=== PATIENT | female | born 1930 | race Caucasian/White ===

== ENCOUNTER 2016-12-15 13:45 | Inpatient (IN) | payer MEDICARE ==
[~2016-12-15] VITALS: Ht 165.1 cm; Wt 70.4 kg
[~2016-12-15 13:45] MED LIST: ATELVIA PO; BISACODYL10 M1 PO; CEPHALEXIN500 MG PO; CIPROFLOXACN500 MG PO; D32000 UNIT PO; DOXEPIN HCL25 MG PO; HYDROCODONE/ACE1 TAB PO; INDERAL 20MG TA20 MG PO; IRON325 MG PO; LIQUITEARS OU; LISINOPRIL20 MG PO; MILK OF MAG2 PO; MIRALAX3350 NF PO; MOBIC7.5 M1 PO; MULTIVITAMI1 PO; NORCO1 TA1 PO; PERCOCET 5/325M1 TAB PO; PERCOCET1 TA4 PO; PRILOSEC20 MG PO; REMERON15 MG PO; SINEQUAN10 MG PO; SONATA10 M1 PO; TYLENOL325 MG PO; XANAX0.5 MG PO; ZOFRAN ODT4 MG PO; ZOFRAN4 MG/TAB PO; ZOLOFT100 MG PO; ZOLOFT50 MG PO
--- NOTE | 2016-12-15 14:04 | NUR ---
PT TO ROOM PER W/C
[2016-12-15] MEDS ORDERED: B COMPLE2 PO (14:24)
[2016-12-15] MEDS ORDERED: PROLIA60 MG/ML SC (14:25)
[2016-12-15] MEDS ORDERED: MELATONIN3 M1 PO (14:26)
[2016-12-15] MEDS ORDERED: LASIX 40 MG TAB40 MG PO (14:27)
[2016-12-15] MEDS ORDERED: OFLOXACIN0.3 % OU (14:27)
[2016-12-15] MEDS ORDERED: NEURONTIN300 MG PO (14:28)
[2016-12-15] MEDS ORDERED: BETAMETH DIP0.05 % EX (14:31)
[2016-12-15] MEDS ORDERED: LEXAPRO20 MG PO (14:33)
[2016-12-15] MEDS ORDERED: LORTAB 10-325 M1 TAB PO (14:35)
[2016-12-15 14:41] LABS: HEMATOCRIT 34.8 % (37.0-47.0); HEMOGLOBIN 10.8 g/dl (12.0-16.0); IMMATURE GRANULOCYTES 0.4 % (0.0-1.0); MEAN CELL VOLUME 86.8 fL CALC (80.0-100.0); MEAN CORPUSCULAR HGB 26.9 pG CALC (26.0-32.0); NEUT# 4.3 thou/uL (2.00-7.15); RED BLOOD COUNT 4.01 mill/uL (4.20-5.60); RED CELL DISTRI WIDTH 17.1 % (11.5-15.5)
[2016-12-15 15:02] LABS: ALBUMIN 4.8 g/dL (3.2-5.0); ALKALINE PHOSPHATASE 77 u/l (38-126); ANION GAP 18 (6-22 (CALC)); BILIRUBIN, TOTAL 1.4 mg/dL (0.0-1.4); BUN 14 mg/dL (8-23); BUN/CREATININE RATIO 20 (12-20 (CALC)); CALCIUM 10.1 mg/dL (8.4-10.2); CARBON DIOXIDE 28 mmol/l (22-30); CHLORIDE 100 mmol/l (95-108); CREATININE 0.7 mg/dL (0.5-1.0); ETHYL ALCOHOL 0 mg/dl (0-30); GFR > 60 ML/MIN (>=60 (CALC)); GFR FOR AFR.AMER. > 60 ML/MIN (>=60 (CALC)); GLUCOSE 122 mg/dL (82-115); LIPASE 33 u/l (23-300); POTASSIUM 3.9 mmol/l (3.5-5.1); SGOT/AST 102 u/l (9-36); SGPT/ALT 42 u/l (11-66); SODIUM 142 mmol/l (137-146); TOTAL PROTEIN 7.4 g/dL (6.3-8.2)
--- NOTE | 2016-12-15 15:05 | NUR ---
PT AMBULATED W/USE OF WALKER TO BR AND RETURNED W/SBA. URINE SPECIMEN OBTAINED. GAIT STEADY.
[2016-12-15 15:10] LABS: MYOGLOBIN 395 ng/mL (0 - 62)
[2016-12-15 15:17] LABS: URINE BILIRUBIN - DIPSTICK NEGATIVE (NEGATIVE); URINE BLOOD DIPSTICK LARGE (NEGATIVE); URINE CLARITY CLEAR; URINE COLOR YELLOW; URINE GLUCOSE - DIPSTICK NEGATIVE (NEGATIVE); URINE KETONE 15 mg/dL (NEGATIVE); URINE LEUK ESTERASE NEGATIVE (NEGATIVE); URINE NITRITE - DIPSTICK NEGATIVE (Negative); URINE PH 6.5 (4.5-8.0); URINE PROTEIN - DIPSTICK 100 mg/dL (NEG-TRACE); URINE SPECIFIC GRAVITY 1.025; URINE UROBILINOGEN - DIPSTICK 0.2 E.U./dL (0.2)
[2016-12-15 15:20] LABS: COCAINE NEGATIVE (NEGATIVE); METHADONE NEGATIVE (NEGATIVE); TETRAHYDROCANNABIONOL NEGATIVE (NEGATIVE)
[2016-12-15 15:21] LABS: BARBITURATES NEGATIVE (NEGATIVE); OXCYCODONE NEGATIVE (NEGATIVE); TRICYLIC ANTIDEPRESSANTS NEGATIVE (NEGATIVE)
[2016-12-15 15:30] LABS: URINE SQUAMOUS EPITHELIAL CELL FEW EPI/hpf (0-FEW); URINE WBC 0-2 WBC/hpf (0-5)
--- NOTE | 2016-12-15 16:00 | NUR ---
PT C/O NAUSEA AND CHRONIC PAIN TO LOWER BACK. MD ADVISED.
--- NOTE | 2016-12-15 16:25 | NUR ---
SBAR PRINTED TO FLOOR
--- NOTE | 2016-12-15 16:27 | NUR ---
PT MEDICATED PO FOR NAUSEA THEN PAIN. TOLERATED WELL. ADVISED OF PENDING ADMIT. PT VOICED UNDERSTANDING.
--- NOTE | 2016-12-15 17:18 | NUR ---
ATTEMTED TO CALL REPORT NURSE UNAVAILABLE AT THIS TIME.
--- NOTE | 2016-12-15 17:33 | NUR ---
ATTEMPTED TO CALL REPORT TO THE FLOOR AND WAS TOLD NURSE WOULD HAVE TO CALL BACK LATER
--- NOTE | 2016-12-15 18:06 | NUR ---
REPORT CALLED TO ROULA DUKES, ON MEDSURG. PT TO [facility]SURG VIA STRETCHER, IV SITE HEALTHY. NO APPARENT DISTRESS.
--- NOTE | 2016-12-15 18:06 | NUR ---
REPORT CALLED TO ROULA UDKES
--- NOTE | 2016-12-15 18:30 | NUR ---
PT TO [employer] VIA STRETCHER. IV SITE HEALTHY. NO APPARENT DISTRESS.
--- NOTE | 2016-12-15 18:35 | NUR ---
FROM ER VIA STRETCHER ACCOMPANIED BY ELIZA CELESTE AND MULTIPLE FAMILY MEMBERS. AMBULATED TO BED WITH STAND BY ASSIST. RESPS EVEN AND UNLABORED ON ROOM AIR. DENIES PAIN OR DISCOMFORT. ORIENTED TO ROOM AND CALL SYSTEM. SAFETY PRECAUTIONS REINFORCED. BED IN LOWEST POSITION WITH WHEELS LOCKED. CALL LIGHT WITHIN REACH. ENCOURAGED PT TO CALL FOR ANY NEEDS.
[2016-12-15 18:40] VITALS: BP 156/76
--- NOTE | 2016-12-15 19:00 | NUR ---
BEDSIDE REPORT RECEIVED FROM ROULA DUKES. PT RESTING IN BED IN SEMI FOWLERS POSITION. C/O LOWER BACK PAIN CURRENTLY. RESPIRATIONS EVEN AND UNLABORED ON ROOM AIR. INITIAL ASSESSMENT COMPLETED AT THIS TIME. ORIENTED TO ROOM AND CALL LIGHT SYSTEM. PLAN OF CARE DISCUSSED. PT ENCOURAGED TO VERBALIZE CONCERNS. STATES UNDERSTANDING. SAFETY MEASURES IN PLACE. CALL LIGHT WITHIN REACH.
--- NOTE | 2016-12-16 | NUR ---
PT ASLEEP AT THIS TIME. NO SIGNS OF DISTRESS NOTED. RESPIRATIONS EVEN AND UNLABORED. IV FLUIDS INFUSING WITHOUT DIFFICULTY; IV SITE APPEARS HEALTHY. SAFETY MEASURES REMAIN IN PLACE. CALL LIGHT WITHIN REACH.
[2016-12-16 03:43] VITALS: BP 139/69
--- NOTE | 2016-12-16 04:10 | NUR ---
PT ASLEEP AT THIS TIME. PUTS CALL LIGHT ON FOR ASSISTANCE TO BSC PRN. NO SIGNS OF DISTRESS NOTED. RESPIRATIONS EVEN AND UNLABORED. NO CHANGES IN ASSESSMENT NOTED. CALL LIGHT WITHIN REACH.
[2016-12-16 06:24] LABS: HEMATOCRIT 36.2 % (37.0-47.0); HEMOGLOBIN 11.1 g/dl (12.0-16.0); IMMATURE GRANULOCYTES 0.3 % (0.0-1.0); MEAN CELL VOLUME 87.9 fL CALC (80.0-100.0); MEAN CORPUSCULAR HGB 26.9 pG CALC (26.0-32.0); MEAN CORPUSCULAR HGB CONC 30.7 g/L CALC (32.0-36.0); NEUT# 2.93 thou/uL (2.00-7.15); RED BLOOD COUNT 4.12 mill/uL (4.20-5.60); RED CELL DISTRI WIDTH 17.2 % (11.5-15.5)
--- NOTE | 2016-12-16 06:33 | NUR ---
PT ALERT AND ORIENTED X 3 THIS AM. VERBALIZES CONCERNS ABOUT BEING A BURDEN TO HER FAMILY AND EXPERIENCING COGNITIVE DECLINE. ASKING QUESTIONS SUCH , "DO PEOPLE BOUNCE BACK FROM THIS?" TLC GIVEN.
[2016-12-16 06:48] LABS: ANION GAP 15 (6-22 (CALC)); BUN 16 mg/dL (8-23); BUN/CREATININE RATIO 22 (12-20 (CALC)); CALCIUM 9.4 mg/dL (8.4-10.2); CARBON DIOXIDE 28 mmol/l (22-30); CHLORIDE 102 mmol/l (95-108); CREATININE 0.8 mg/dL (0.5-1.0); GFR > 60 ML/MIN (>=60 (CALC)); GFR FOR AFR.AMER. > 60 ML/MIN (>=60 (CALC)); GLUCOSE 81 mg/dL (82-115); POTASSIUM 3.5 mmol/l (3.5-5.1); SODIUM 142 mmol/l (137-146)
[2016-12-16 07:24] VITALS: BP 138/60
--- NOTE | 2016-12-16 07:24 | NUR ---
REPORT RECEIVED FROM CAREN DE. PT SUPINE IN BED. DENIES PAIN. LEFT ARM SWOLLEN. IVS LAC REMOVED. ARM ELEVATED ON PILLOW. REPROTING OF CONCERNS ENCOURAGED. FALL PRECAUTIONS REINFORCED. CALL LIGHT REVIEWED AND IN REACH. PT STATES UNDERSTANDING.
[2016-12-16 16:10] VITALS: BP 140/58
[2016-12-16 16:15] VITALS: BP 125/65
--- NOTE | 2016-12-16 16:19 | NUR ---
ORTHOSTATIC BP FOLLOW: LYING 140/58, HR 69; SITTING 125/65, HR 86; STANDING 137/76, HR 74. PT TOLERATED WELL.
[2016-12-16 16:20] VITALS: BP 137/76
--- NOTE | 2016-12-16 16:30 | NUR ---
PT'S DAUGHTER AT BEDSIDE. NO COMPLAINTS AT THIS TIME. CALL LIGHT WITHIN REACH.
[2016-12-16 19:25] VITALS: BP 119/63
--- NOTE | 2016-12-16 20:45 | NUR ---
PT RESTING IN SEMI FOWLERS POSITION;PT DENIES ANY PAIN OR DISCOMFORTS AT THIS TIME;RESPIRATIONS EVEN AND UNLABORED ON RA;PT A&O X3,PERON PLACE AND TIME;#22G TO LEFT FOREARM INFUSING NS @ 80ML/HR WELL;ASSESSMENT COMPLETED;SAFETY PRECAUTIONS REINFORCED;GERNERALIZED BRUISING NOTED THROUGHOUT BODY;PT DENIES ANY OTHER NEEDS AT THIS TIME;FALL PRECAUTIONS IN PLACE WITH BED IN THE LOWEST POSITION;CALL LIGHT IN REACH;WILL CONTINUE TO MONITOR
--- NOTE | 2016-12-17 02:07 | NUR ---
PT RESTING IN SUPINE POSITION;PT COMPLAINS OF LOWER BACK PAIN RATING 9/10 ON THE PAIN SCALE AND REQUESTS PRN PAIN MEDICATION;PT MEDICATED WITH PRN LORTAB;IV FLUIDS INFUSING WELL TO LEFT FOREARM;PT RE-POSITIONED IN BED AT THIS TIME;PT DENIES ANY OTHER NEEDS;FALL PRECAUTIONS IN PLACE WITH CALL LIGHT IN REACH;WILL CONTINUE TO MONITOR
--- NOTE | 2016-12-17 04:15 | NUR ---
PT AMBULATED TO RESTROOM AND BACK WITH WEAK GAIT AND ASSISTED DEVICE;PT DENIES ANY PAIN OR DISCOMFORTS AT THIS TIME;IV FLUIDS INFUSING WELL;FALL PRECAUTIONS IN PLACE WITH CALL LIGHT IN REACH;WILL CONTINUE TO MONITOR
[2016-12-17 04:41] VITALS: BP 130/65
[2016-12-17 05:31] LABS: HEMATOCRIT 33.7 % (37.0-47.0); HEMOGLOBIN 10.3 g/dl (12.0-16.0); IMMATURE GRANULOCYTES 0.2 % (0.0-1.0); MEAN CELL VOLUME 88.7 fL CALC (80.0-100.0); MEAN CORPUSCULAR HGB 27.1 pG CALC (26.0-32.0); MEAN CORPUSCULAR HGB CONC 30.6 g/L CALC (32.0-36.0); NEUT# 2.94 thou/uL (2.00-7.15); RED BLOOD COUNT 3.8 mill/uL (4.20-5.60); RED CELL DISTRI WIDTH 17.1 % (11.5-15.5)
[2016-12-17 05:51] LABS: ANION GAP 14 (6-22 (CALC)); BUN 17 mg/dL (8-23); BUN/CREATININE RATIO 22 (12-20 (CALC)); CALCIUM 8.6 mg/dL (8.4-10.2); CARBON DIOXIDE 27 mmol/l (22-30); CHLORIDE 106 mmol/l (95-108); CREATININE 0.8 mg/dL (0.5-1.0); GFR > 60 ML/MIN (>=60 (CALC)); GFR FOR AFR.AMER. > 60 ML/MIN (>=60 (CALC)); GLUCOSE 113 mg/dL (82-115); POTASSIUM 3.5 mmol/l (3.5-5.1); SODIUM 143 mmol/l (137-146)
--- NOTE | 2016-12-17 07:35 | NUR ---
PT LAYING IN THE BED RESTING WITH EYES CLOSED, AROUSES EASILY TO VERBAL STIMULI, A & O X3, PERRL, PT COMPLAINS OF LOWER BACK PAIN AND STATES "I HAVE HAD THIS PAIN FOR YEARS", PT ASSISTED WITH REPOSITIONING FOR COMFORT, RESP. EVEN & UNLABORED, 22G RFA IV WITH NS INFUSING AT PERSCRIBED RATE, LUNG SOUNDS CLEAR IN ALL HEAD, AM ASSESSMENT COMPLETE, SEE INTERVENTIONS, SAFETY MEASURES REINFORCED, CALL VENEGAS WITHIN REACH
--- NOTE | 2016-12-17 07:40 | NUR ---
SETUP ASSISTANCE PROVIDED WITH AM MEAL TRARosa
--- NOTE | 2016-12-17 08:22 | NUR ---
DR SNOW AND MONICA TENORIO AT BEDSIDE DISCUSSING PLAN OF CARE
--- NOTE | 2016-12-17 09:30 | NUR ---
P.T. AT BEDSIDE WORKING WITH PT, PT TOLERATING WELL
--- NOTE | 2016-12-17 10:13 | NUR ---
PATIENT ON TOILET. MIN A FROM TOILET AND CGA WHILE HOLDING ONTO IV POLE. SLOW DELIBERATE STEPS WITH FLXN ATTITUDE. POOR ENDURANCE IS PRIMARY LIMITATION. ISOLATED MMT OF LE'S IS WFL, BUT SHE FATIGUES AFTER 50 FEET. TODAY ONLY ABLE TO AMB 15' X 3. VERBAL CUE STNAD TO SIT AND MIN A SIT TO SUPINE. PATIENT MAY BENEFIT FROM SHORT TERM INPATIENT REHAB SHE LIVES ALONE AND HAS REGRESSED FROM HER PLOF SINCE CURRENT ILLNESS.
--- NOTE | 2016-12-17 11:05 | NUR ---
VISITORS AT BEDSIDE
--- NOTE | 2016-12-17 12:15 | NUR ---
PT ASSISTED WITH GETTING WASHED UP AND GETTING BACK TO BED, PT AMBULATED TO THE BATHROOM WITH WALKER, PT REMINDED TO CALL FOR ASSISTANCE, CALL VENEGAS WITHIN REACH
--- NOTE | 2016-12-17 15:28 | NUR ---
VISITORS AT BEDSIDE
[2016-12-17 17:04] VITALS: BP 164/60
--- NOTE | 2016-12-17 17:25 | NUR ---
PT LAYING IN BED TALKING ON THE PHONE, NO S/S OF DISTRESS, CALL VENEGAS WITHIN REACH
[2016-12-17 20:00] VITALS: BP 145/80; BP 150/71
--- NOTE | 2016-12-17 22:05 | NUR ---
PT RESTING IN SUPINE POSITION;PT COMPLAINS OF LOWER BACK PAIN RATING 10/10 ON THE PAIN SCALE AND REQUESTS PAIN MEDICATION;PT MEDICATED WITH PRN LORTAB AT THIS TIME;ASSESSMENT COMPLETED;NO IV SITE NOTED,MD ALREADY AWARE;PT EDUCATED TO CONSUME PO FLUIDS AND VERBALIZES UNDERSTANDING;PT A&O X3;BRUISING NOTED THROUGHOUT BUE FROM MULTIPLE IV INFILTRATIONS;RESPIRATIONS EVEN AND UNLABORED ON RA;PT REQUESTS PRN SLEEPING PILL THIS EVENING,MD TO BE NOTIFED;PT DENIES ANY OTHER NEEDS;SAFETY PRECAUTIONS REINFORCED;FALL PRECAUTIONS IN PLACE;CALL LIGHT IN REACH;WILL CONTINUE TO MONITOR
--- NOTE | 2016-12-17 22:15 | NUR ---
NEW ORDERS RECEIVED BY ;WILL CONTINUE TO MONITOR
--- NOTE | 2016-12-18 01:50 | NUR ---
PT APPEARS TO BE SLEEPING WITH EYES CLOSED IN SUPINE POSITION;NO S/S OF DISTRESS NOTED;RESPIRATIONS EVEN AND UNLABORED ON RA;FALL PRECAUTIONS IN PLACE WITH CALL LIGHT IN REACH;WILL CONTINUE TO MONITOR
[2016-12-18 04:35] VITALS: BP 150/69
--- NOTE | 2016-12-18 05:45 | NUR ---
PT APPEARS TO BE SLEEPING IN LEFT SIDE LAYING POSITION WITH EYES CLOSED;NO S/S OF DISTRESS NOTED;RESPIRATIONS EVEN AND UNLABORED ON RA;FALL PRECAUTIONS IN PLACE WITH CALL LIGHT IN REACH;WILL CONTINUE TO MONITOR
[2016-12-18 06:29] LABS: HEMATOCRIT 31.3 % (37.0-47.0); HEMOGLOBIN 9.7 g/dl (12.0-16.0); IMMATURE GRANULOCYTES 0.3 % (0.0-1.0); MEAN CELL VOLUME 88.9 fL CALC (80.0-100.0); MEAN CORPUSCULAR HGB 27.6 pG CALC (26.0-32.0); NEUT# 1.87 thou/uL (2.00-7.15); RED BLOOD COUNT 3.52 mill/uL (4.20-5.60); RED CELL DISTRI WIDTH 17.1 % (11.5-15.5)
--- NOTE | 2016-12-18 07:00 | NUR ---
SHIFT CHANGE REPORT FROM PAVAN MONTGOMERY SLEEPING AT THIS TIME, BREATHING EVEN AND NON-LABORED, NO SIGN DISCOMFORT, CALL VENEGAS IN REACH.
[2016-12-18 08:21] VITALS: BP 166/73
[2016-12-18 08:31] VITALS: BP 166/73
--- NOTE | 2016-12-18 08:55 | NUR ---
AWAKE ALERT AND ORIENTED, ATE MEAL, C/O BACK MARCO, ISSUE ADDRESED.
[2016-12-18] MEDS ORDERED: MOBIC7.5 M1 PO (12:04)
[2016-12-18] MEDS ORDERED: LORTAB 10-325 M1 TAB PO (12:04)
[2016-12-18] MEDS ORDERED: XANAX0.5 MG PO (12:04)
--- NOTE | 2016-12-18 14:57 | NUR ---
Discharge instructions given. Patient verbalizes understanding of same. Discharged in good condition via Wheelchair to Home with family. All belongings sent with pt.
--- NOTE | 2016-12-18 15:06 | NUR ---
REPORT GIVE TO DANTE JENNINGS) @ [facility] IN [place] WHERE PT WILL BE D/C TO.
== END 2016-12-18 14:51 | DRG 917 ==
LOC: ED 13:45 → ED-I 15:50 → ED 16:43 → MS2 16:44
PROVIDERS: Emergency Medicine; Nurse Practitioner Family; ADMIT Internal Medicine; ATTEND Internal Medicine
DX: T40.2X1A Poisoning by other opioids, accidental (unintentional), initial encounter (principal); G92 Toxic encephalopathy; E86.0 Dehydration; L03.114 Cellulitis of left upper limb; T80.818A Extravasation of other vesicant agent, initial encounter; G89.4 Chronic pain syndrome; F32.9 Major depressive disorder, single episode, unspecified; M19.90 Unspecified osteoarthritis, unspecified site; D50.9 Iron deficiency anemia, unspecified; Y92.009 Unspecified place in unspecified non-institutional (private) residence as the place of occurrence of the external cause; Y84.8 Other medical procedures as the cause of abnormal reaction of the patient, or of later complication, without mention of misadventure at the time of the procedure; Y92.239 Unspecified place in hospital as the place of occurrence of the external cause; Z85.3 Personal history of malignant neoplasm of breast; Z91.81 History of falling; Z96.641 Presence of right artificial hip joint

== ENCOUNTER 2017-04-05 10:44 | Emergency (ER) | payer MEDICARE ==
[~2017-04-05] VITALS: Ht 165.1 cm; Wt 72.0 kg
[~2017-04-05 10:44] MED LIST changes: +B COMPLE2 PO; +BETAMETH DIP0.05 % EX; +LASIX 40 MG TAB40 MG PO; +LEXAPRO20 MG PO; +LORTAB 10-325 M1 TAB PO; +MELATONIN3 M1 PO; +NEURONTIN300 MG PO; +OFLOXACIN0.3 % OU; +PROLIA60 MG/ML SC
[2017-04-05 14:20] VITALS: BP 134/92
[2017-04-05 14:40] LABS: URINE BILIRUBIN - DIPSTICK NEGATIVE (NEGATIVE); URINE BLOOD DIPSTICK LARGE (NEGATIVE); URINE COLOR YELLOW; URINE GLUCOSE - DIPSTICK NEGATIVE (NEGATIVE); URINE KETONE TRACE mg/dL (NEGATIVE); URINE NITRITE - DIPSTICK NEGATIVE (Negative); URINE PROTEIN - DIPSTICK 30 mg/dL (NEG-TRACE); URINE SPECIFIC GRAVITY 1.025; URINE UROBILINOGEN - DIPSTICK 0.2 E.U./dL (0.2)
[2017-04-05 14:45] LABS: URINE CLARITY CLEAR; URINE LEUK ESTERASE SMALL (NEGATIVE); URINE SQUAMOUS EPITHELIAL CELL FEW EPI/hpf (0-FEW)
[2017-04-05] MEDS ORDERED: MACROBID100 MG PO (14:52)
== END 2017-04-05 15:07 | disposition home or self-care (01) ==
LOC: ED 10:44
PROVIDERS: Emergency Medicine
DX: M48.56XA Collapsed vertebra, not elsewhere classified, lumbar region, initial encounter for fracture (principal); N39.0 Urinary tract infection, site not specified; B96.20 Unspecified Escherichia coli [E. coli] as the cause of diseases classified elsewhere; R50.9 Fever, unspecified

== ENCOUNTER 2017-04-06 16:49 | Inpatient (IN) | payer MEDICARE ==
[~2017-04-06] VITALS: Ht 165.1 cm; Wt 73.3 kg
[~2017-04-06 16:49] MED LIST changes: +MACROBID100 MG PO
--- NOTE | 2017-04-06 16:49 | NUR ---
TO ROOM 14 VIA STRETCHER BY EMS. FEBRILE. MOANS WHEN TURNED OR REPOSITIONED
--- NOTE | 2017-04-06 17:39 | NUR ---
PT SEEN RESTLESS IN THE STRETCHER, FEBRILE. BLOOD COLLECTED FROM IV SITE, ABG IN PROCESS NOW. NIECE AT BEDSIDE.
[2017-04-06 18:38] LABS: HEMATOCRIT 30.2 % (37.0-47.0); HEMOGLOBIN 9.7 g/dl (12.0-16.0); IMMATURE GRANULOCYTES 0.7 % (0.0-1.0); MEAN CELL VOLUME 95.6 fL CALC (80.0-100.0); MEAN CORPUSCULAR HGB 30.7 pG CALC (26.0-32.0); MEAN CORPUSCULAR HGB CONC 32.1 g/L CALC (32.0-36.0); NEUT# 6.91 thou/uL (2.00-7.15); RED BLOOD COUNT 3.16 mill/uL (4.20-5.60); RED CELL DISTRI WIDTH 13.6 % (11.5-15.5)
[2017-04-06 18:44] LABS: ALBUMIN 3.4 g/dL (3.2-5.0); BILIRUBIN, TOTAL 1.4 mg/dL (0.0-1.4); CALCIUM 8.9 mg/dL (8.4-10.2); CREATININE 1.3 mg/dL (0.5-1.0); POTASSIUM 3.5 mmol/l (3.5-5.1); TOTAL PROTEIN 5.3 g/dL (6.3-8.2)
--- NOTE | 2017-04-06 21:00 | NUR ---
PT RECEIVES ABX ORDERED, PAIN MED ORDERED, APPEARS MORE ALERT AT THIS TIME. NIECE AT BEDSIDE, WAITS FOR ADMISSION.
[2017-04-06 21:30] LABS: URINE BILIRUBIN - DIPSTICK NEGATIVE (NEGATIVE); URINE BLOOD DIPSTICK LARGE (NEGATIVE); URINE COLOR YELLOW; URINE GLUCOSE - DIPSTICK NEGATIVE (NEGATIVE); URINE KETONE 15 mg/dL (NEGATIVE); URINE LEUK ESTERASE NEGATIVE (NEGATIVE); URINE NITRITE - DIPSTICK NEGATIVE (Negative); URINE PROTEIN - DIPSTICK 100 mg/dL (NEG-TRACE); URINE SPECIFIC GRAVITY >=1.030; URINE UROBILINOGEN - DIPSTICK 0.2 E.U./dL (0.2)
[2017-04-06 21:34] LABS: BARBITURATES NEGATIVE (NEGATIVE); COCAINE NEGATIVE (NEGATIVE); METHADONE NEGATIVE (NEGATIVE); TETRAHYDROCANNABIONOL NEGATIVE (NEGATIVE); TRICYLIC ANTIDEPRESSANTS NEGATIVE (NEGATIVE); URINE CLARITY SL CLOUDY
[2017-04-06 21:35] LABS: OXCYCODONE POSITIVE (NEGATIVE)
[2017-04-06 21:39] LABS: URINE AMORPH SEDIMENT MANY hpf (NONE-FEW); URINE SQUAMOUS EPITHELIAL CELL FEW EPI/hpf (0-FEW)
--- NOTE | 2017-04-06 22:21 | NUR ---
PT PROVIDED PAIN MED AT THIS TIME. REPORT CALLED TO ICU-8, EDNA RECEIVING. TO FLOOR SOON.
--- NOTE | 2017-04-06 22:25 | NUR ---
86 yr old white female admitted icu8 per stretcher from er. transferred x3 to bed. bed weight obtained. oriented to name only. has to think about response before answering questions. o2 cont per nc. lot worker shows sinus rhythm freq pacs occas pvcs. history obtained per er & old records. oriented to room. fall precautions initiated.
--- NOTE | 2017-04-06 22:27 | NUR ---
PT TO ICU 8 WITH RN AND MONITOR ON OXYGEN 2L NC
[2017-04-06 22:45] VITALS: BP 142/66
[2017-04-06 23:00] VITALS: BP 139/59
[2017-04-06 23:15] VITALS: BP 124/61
[2017-04-06 23:30] VITALS: BP 126/64
--- NOTE | 2017-04-06 23:50 | NUR ---
assisted x2 to bsc. venessa fair. voided 100cc. urine aleksey colored. assisted back to nevaeh. lortab 10mg po given. remains confused. po fluids encouraged.
[2017-04-07] VITALS (16 sets, daily range): BP systolic 90–135; BP diastolic 41–79
--- NOTE | 2017-04-07 00:01 | NUR ---
awake. conts to c/o back pain. turned freq.
--- NOTE | 2017-04-07 02:00 | NUR ---
awake. conts to c/o back pain. repositioned freq. finished cloth examiner shows sinus rhythm.
--- NOTE | 2017-04-07 04:00 | NUR ---
awake. cont to c/o back pain. repositioned. no acute distress.
--- NOTE | 2017-04-07 05:40 | NUR ---
remains awake. has slept few minutes @ a time. lortab 10 po given per request for back pain. admits "it's not strong enough."
--- NOTE | 2017-04-07 07:30 | NUR ---
PT ALERT BUT CONFUSED, AWARE OF SURROUNDINGS BUT UNABLE TO NAME PLACE, UNABLE TO TELL ME HER ADDRESS, STATES SHE LIVES ALONE BUT THAT SHE HAS A NIECE THAT CHECKS ON HER FREQUENTLY, STATES SHE DOES NOT DRIVE, IS AWARE OF PRESIDENT AND NAME, REORIENTED EASILY FOR SHORT PERIODS OF TIME, AM ASSESSMENT COMPLETE SEE INTERVENTIONS, SKIN WARM AND DRY WITH NO BREAKDOWN NOTED, ABD SOFT AND BOWEL SOUNDS ACTIVE, IV SITE INTACT IN LEFT WRIST, WITH IVF INFUSING AT PRESCRIBED RATE, STATES SHE HAS CHRONIC BACK PAIN THAT NEVER REALLY GOES AWAY, TELE SHOWS SR WITH PAC'S AND PVC'S RATE CONTROLLED IN THE 80'S, BP STABLE, CALL VENEGAS WITH IN REACH,SAFETY MEASURES REINFORCED, WILL CONTINUE TO MONITOR,
[2017-04-07 07:44] LABS: HEMATOCRIT 28.6 % (37.0-47.0); HEMOGLOBIN 8.8 g/dl (12.0-16.0); MEAN CELL VOLUME 97.6 fL CALC (80.0-100.0); MEAN CORPUSCULAR HGB CONC 30.8 g/L CALC (32.0-36.0); RED BLOOD COUNT 2.93 mill/uL (4.20-5.60); RED CELL DISTRI WIDTH 13.7 % (11.5-15.5)
--- NOTE | 2017-04-07 07:45 | NUR ---
PT OOB WITH MIN ASSIST, SITTING UP IN RECLINER, PT REQUIRES FREQUENT REMINDERS REGARDING LOCATION, PLAN OF CARE AND PLANS FOR TODAY, PT FORGETFUL WITH SHORT TERM MEMORY ISSUES NOTED, COMFORT MEASURES PROVIDED WILL CONTINUE TO MONITOR.
[2017-04-07 08:16] LABS: CALCIUM 8.3 mg/dL (8.4-10.2); CREATININE 1.1 mg/dL (0.5-1.0); POTASSIUM 3.6 mmol/l (3.5-5.1)
--- NOTE | 2017-04-07 08:26 | NUR ---
PT FORGETFUL REPEATEDLY ASKS ABOUT GOING BACK TO BED EDUCATED REGARDING THE IMPORTANCE OF OOB ACTIVITY, AND INCREASED ACTIVITY TOLERATED, CALL VENEGAS WITHIN REACH, EASILY VISIBLE FROM NURSES STATION FOR SAFETY
--- NOTE | 2017-04-07 08:31 | NUR ---
PT AGAIN CALLS OUT ASKING ABOUT GOING BACK TO BED, SAFETY MEASURES REINFORCED, EDUCATED AGAIN REGARDING OOB ACTIVIY, CALL VENEGAS WITHIN REACH
--- NOTE | 2017-04-07 09:04 | NUR ---
IN TO SEE PTIENT, PLAN OF CARE DISCUSSED
--- NOTE | 2017-04-07 09:54 | NUR ---
PT ASSISTED WITH AM ADL CARE, BATH AND LINEN CHANGED, ASSISTED BACK TO BED WITH MOD ASSIST, COMFORT MEASURES PROVIDED, WILL CONTINUE TO MONITOR
--- NOTE | 2017-04-07 11:00 | NUR ---
Pt oob to bsc with mod assist, no results, assisted back to bed with same assist, call albert within reach, visitor remains at bedside.
--- NOTE | 2017-04-07 11:40 | NUR ---
Medicated for complaints of mild nausea. Visitor remains at bedside
--- NOTE | 2017-04-07 12:06 | NUR ---
medicated for complaints of pain, visitor remains at bedside
--- NOTE | 2017-04-07 13:15 | NUR ---
pt medicated again for complaints of pain, resting in bed, offers no other complaints, call albert within reach.
--- NOTE | 2017-04-07 15:04 | NUR ---
pt resting in bed, repositioned fro comfort, statespain controlled at this time, mari within [facility],e asily visible from nurses station for safety, will continue to monitor.
--- NOTE | 2017-04-07 15:49 | NUR ---
visitors at bedside, pt dozes intermittenly, admits to poor sleep in last 2 days, comfort measures provided will continue to monitor.
--- NOTE | 2017-04-07 16:35 | NUR ---
PT OOB TO BSC WITH MOD ASSIST, CONTINENT OF SMALL AMOUNT TEA COLORED URINE,ASSISTED WITH DIANA CARE, BACK TO BED AND REPOSITIONED FOR COMFROT, VISITORS AT BEDSIDE, WILL CONTINUE TO MONITOR.
--- NOTE | 2017-04-07 17:28 | NUR ---
SET UP ASSIST PROVIDED FOR PME MEAL,
--- NOTE | 2017-04-07 18:11 | NUR ---
TOLERATED SMALL AMOUNT OF SOUP BROUGHT FROM HOME BY FAMILY MEMBER, STATES SHE IS JUST NOT HUNGRY. COMFORT MEASURES PROVIDED, CALL VENEGAS WITHIN REACH, VISITORS GONE AT THIS TIME.
--- NOTE | 2017-04-07 19:15 | NUR ---
awake. remains confused. o2 cont per nc. monitoring tech shows sinus rhythm pacs pacs. #20 lt wrist. ns infusing @ 125cchr. po fluids taken fair. voids per bsc. urine aleksey colored. fall precautions cont.
--- NOTE | 2017-04-07 20:50 | NUR ---
awake. c/o back pain. lortab 10 po given.
--- NOTE | 2017-04-07 22:00 | NUR ---
eyes closed. no distress. school lunch monitor shows sinus rhythm pacs pvcs.
[2017-04-08] VITALS (21 sets, daily range): BP systolic 94–123; BP diastolic 47–85
--- NOTE | 2017-04-08 00:01 | NUR ---
eyes closed. no distress. o2 cont.
--- NOTE | 2017-04-08 02:00 | NUR ---
resting qwuietly. resps even & unlabored. no apparent distress.
--- NOTE | 2017-04-08 04:00 | NUR ---
eyes closed. no apparent distress. gambling monitor shows sinus rhythm pacs pvcs.
--- NOTE | 2017-04-08 04:45 | NUR ---
up to bsc. voided well. urine remains aleksey colored. assisted to bed. lortav 10 po given.
--- NOTE | 2017-04-08 05:15 | NUR ---
requests o2 to be removed. admits "stuffy nose." o2 removed. lab here. blood drawn. sao2 dropped to 87%. o2 replaced. sao2 increased to 95%.
[2017-04-08 05:52] LABS: CALCIUM 8.5 mg/dL (8.4-10.2); CREATININE 1.3 mg/dL (0.5-1.0); POTASSIUM 4.2 mmol/l (3.5-5.1)
[2017-04-08 05:56] LABS: HEMOGLOBIN 8.9 g/dl (12.0-16.0); IMMATURE GRANULOCYTES 1.9 % (0.0-1.0); MEAN CORPUSCULAR HGB 30.4 pG CALC (26.0-32.0); MEAN CORPUSCULAR HGB CONC 30.7 g/L CALC (32.0-36.0); NEUT# 6.96 thou/uL (2.00-7.15); RED BLOOD COUNT 2.93 mill/uL (4.20-5.60); RED CELL DISTRI WIDTH 13.8 % (11.5-15.5)
--- NOTE | 2017-04-08 07:20 | NUR ---
PT ALERT MORE ORIENTED THIS AM, AWARE OF PLACE AND TIME AND REMEMBERS THIS NURSES NAME FROM YESTERDAY, AM ASSESSMENT COMPLETE SEE INTERVENTIONS, SKIN WARM AND DRY WITH NO BREAKDOWN NOTED, ABD SOFT AND BOWEL SOUNDS ACTIVE PT STTEAS LAST BM WAS PRIOR TO ADMISSION, REQUESTING SOMETHINE TO "HELP HER GO" IV SITE INTACT IN LEFT WRIST, WITH IVF INFUSING AT PRESCRIBED RATE, STATES SHE HAS CHRONIC BACK PAIN THAT NEVER REALLY GOES AWAY AND STATES IT IS HURTING THIS AM "PRETTY GOOD" EDUCATED REGARDING LAST DOSE OF PAINMED (0452am) AND MEDICATION SCHEDULE ADN NEED TO DISCUSS PAINCONTROL WITH MD ON AM ROUNDS, VERBALIZES UNDERSTANDING. TELE SHOWS SR WITH PAC'S AND PVC'S RATE CONTROLLED IN THE 80'S, BP STABLE, CALL VENEGAS WITH IN REACH,SAFETY MEASURES REINFORCED, WILL CONTINUE TO MONITOR,
--- NOTE | 2017-04-08 07:45 | NUR ---
SET UP ASSIST PROVIDED FOR AM MEAL, COMFORT MEASURES PROVIDED, CALL VENEGAS WITHIN REACH, REMINDED TO CALL FRO ANY NEEDED ASSISTANCE. WILL CONTINUE TO MONITOR.
--- NOTE | 2017-04-08 08:33 | NUR ---
PT RESTING IN BED, EDUCATED REGARDING UPCOMING VANCO ADMINISTRATION INCLUDING EXPECTATIONS, REASON FOR ADMINISTRATION AND POSSIBLE, SIDE EFFECTS, ALL QUESTIONS ANSWERED, CALL VENEGAS REMAINS WITHIN REACH
--- NOTE | 2017-04-08 09:33 | NUR ---
S: RYAN LLOYD is a 86 F who presents with UTI. She has a history of UTI, encephalopathy, and chronic pain. All medications in patient's chart were reviewed. O: VS: BP 102/48, P 80 , RR 13, T 98 (F) W 73.255 kg, HT 65 in, Scr= 1.3,CrCl= 31.7 ml/min A: Blood culture shows gram positive cocci in 2 of 2 sets. P: Patient is on aztreonam 1 g IV Q12H. Vancomycin ordered for pharmacy to dose. Start Vancomycin 1 g IV Q24H. Vancomycin trough is drawn before the 4th dose on 04/11/17 at 0830. Vancomycin goal trough is between 15-20 mcg/ml. Pharmacy will follow and or advise on antibiotics use as needed.
--- NOTE | 2017-04-08 09:41 | NUR ---
PT OOB TO BSC WITH MOD ASSIST, TOLERATED WELL, CALL VENEGAS WITHIN REACH, AWARE OF NEED FOR URINE SPECIMEN
--- NOTE | 2017-04-08 11:15 | NUR ---
PT RESTING IN BED, VISITOR AT BEDSIDE, COMFORT MEASURES PROVIDED, CALL VENEGAS WITHIN REACH.
--- NOTE | 2017-04-08 11:45 | NUR ---
SET UP ASSIST PROVIDED FOR LUNCH, VISITOR AT BEDSIDE VOLUNTEERS TO ASSIST WITH MEAL, PT CONTINUES TO TAKE ADEQUATE ORAL FLUID INTACT BUT DIETARY INTAKE STILL MINIMAL, WILL CONTINUE TO ENCOURAGE.
--- NOTE | 2017-04-08 12:58 | NUR ---
PT OOB TO BSC WITH MOD ASSIST, CALL VENEGAS WITHIN REACH
--- NOTE | 2017-04-08 13:18 | NUR ---
PT BACK TO BED, TOLERATED ACTIVITY WELL, COMPLAINTS OF R SHOULDER DISCOMFORT SINCE EARLIER THIS AM, PT DECLINES INJURY OR TRAUMA, CALL VENEGAS WITHIN REACH, MEDICATED RECENTLY FOR COMPLAINTS OF PAIN, WILL CONTINUE TO MONITOR
--- NOTE | 2017-04-08 15:17 | NUR ---
PT RESTING, CALL VENEGAS WITHIN REACH, OFFERS NO NEW COMPLAINTS STATES PAIN "TOLERABLE" AT THIS TIME, COMFORT MEASURES PROVIDED, WILL CONTINUE TO MONITOR.
--- NOTE | 2017-04-08 16:18 | NUR ---
PT RESTING VISITOR (JAYLEN) AT BEDSIDE, CALL VENEGAS WITHIN REACH, WILL CONTINUE TO MONITOR.
--- NOTE | 2017-04-08 17:35 | NUR ---
SET UP ASSIST PROVIDED FOR PM MEAL, VISITORS AT BEDSIDE CALL VENEGAS WITHIN REACH
--- NOTE | 2017-04-08 19:40 | NUR ---
OOB TO BSC WITH SLOW WEAK GAIT, COMPLETE BED BATH AND DIANA CARE PROVIDED AT THIS TIME. CLEAN LINENS APPLIED. VOIDING DARK YELLOW URINE, AND PASSING FLATUS. BACK TO BED, ABLE TO BRUSH OWN TEETH. RESPIRATIONS EVEN AND UNLABORED, ALERT AND ORIENTED X3, ENCOURAGED TO USE CALL LIGHT FOR ASSISTANCE. NS INFUSING TO LW AT 20CC/HR. WILL CONTINUE TO MONITOR.
--- NOTE | 2017-04-08 20:13 | NUR ---
MS CONTIN PROVIDED AT THIS TIME FOR BACK PAIN 10/29, SWALLOWS PO MEDS WITH APPLE SAUCE. INDERAL HELD DUE TO B/P 117/51, HR 75.
--- NOTE | 2017-04-08 23:58 | NUR ---
TEMP 100.0, TYLENOL 650MG PO GIVEN WITH APPLESAUCE. DENIES NEED FOR PAIN MEDS AT THIS TIME. CALL LIGHT IN REACH.
[2017-04-09] VITALS (20 sets, daily range): BP systolic 95–121; BP diastolic 43–85
--- NOTE | 2017-04-09 02:00 | NUR ---
RESTING ON LEFT SIDE, RESPIRATIONS EVEN AND UNLABORED. CALL LIGHT IN REACH.
--- NOTE | 2017-04-09 04:05 | NUR ---
RESTING ON RIGHT SIDE WITH EYES CLOSED, RESPIRATIONS EVEN AND UNLABORED, RESPONDS EASILY TO VERBAL COMMAND TEMP 98.2 AT THIS TIME. DENIES NEED FOR PAIN MEDICATIONS. CALL LIGHT IN REACH.
--- NOTE | 2017-04-09 05:05 | NUR ---
OOB TO BSC WITH ONE PERSON ASSISTANCE, VOIDING 300ML OF DARK YELLOW URINE, THEN BACK TO BED. LORTAB PROVIDED FOR C/O BACK PAIN 10/29. MORNING BLOOD WORK DRAWN BY TAPING MACHINE OPERATOR, TOLERATED WELL. CALL LIGHT IN REACH.
[2017-04-09 05:17] LABS: HEMATOCRIT 27.1 % (37.0-47.0); HEMOGLOBIN 8.6 g/dl (12.0-16.0); MEAN CELL VOLUME 97.1 fL CALC (80.0-100.0); MEAN CORPUSCULAR HGB 30.8 pG CALC (26.0-32.0); MEAN CORPUSCULAR HGB CONC 31.7 g/L CALC (32.0-36.0); NEUT# 6.61 thou/uL (2.00-7.15); RED BLOOD COUNT 2.79 mill/uL (4.20-5.60); RED CELL DISTRI WIDTH 13.6 % (11.5-15.5)
[2017-04-09 05:29] LABS: CALCIUM 8.7 mg/dL (8.4-10.2); CREATININE 1.2 mg/dL (0.5-1.0)
--- NOTE | 2017-04-09 07:45 | NUR ---
SET UP ASSIST PROVIDED FOR AM MEAL, ENCOURAGED TO CALL FOR ANY NEEDED ASSISTANCE.
--- NOTE | 2017-04-09 08:15 | NUR ---
EDWARD A RIDEG FOR REPEAT BLOOD CULTURE DRAW
--- NOTE | 2017-04-09 08:20 | NUR ---
PT ALERT REMAINS ORIENTED THIS AM, AWARE OF PLACE AND TIME AND REMEMBERS THIS NURSES NAME FROM LAST 2 DAYS, AM ASSESSMENT COMPLETE SEE INTERVENTIONS, SKIN WARM AND DRY WITH NO BREAKDOWN NOTED, ABD SOFT AND BOWEL SOUNDS ACTIVE PT STTEAS LAST BM WAS PRIOR TO ADMISSION, STILL REQUESTING SOMETHINE TO "HELP HER GO", WILL DISCUSS WITH ON AM ROUNDS, IV SITE INTACT IN LEFT WRIST, WITH IVF INFUSING AT PRESCRIBED RATE, PT REMINDED OF PAIN MEDICATION SCHEDULE AND NEW LONG ACTING MEDICATION, VERBALIZES UNDERSTANDING. TELE CONTINUES TO SHOW SR WITH PAC'S AND PVC'S RATE CONTROLLED IN THE 70-80'S, BP STABLE, CALL VENEGAS WITH IN REACH, SAFETY MEASURES REINFORCED, WILL CONTINUE TO MONITOR,
--- NOTE | 2017-04-09 08:23 | NUR ---
IN TO SEE PATIENT, PLAN OF CARE DISCUSSED
--- NOTE | 2017-04-09 09:32 | NUR ---
PT PLACED ON COMMODE TO URINATE. PT WAS ASKED IF SHE WOULD LIKE TO GET WASHED UP WHILE ON COMMODE. PT AGREED, PT ASSISTED BY WASHING HER FACE AND PART OF THE CHEST. PT HAD 100 ML OF YELLOWISH-RED URINE. PT STATED SHE HAS HEMORRHOID, SO DOES BLEED ON OCCASION WHEN SHE URINATES. NURSE ALSO NOTIFIED ABOUT THE BLEEDING. PT PLACED BACK IN BED AFTER LINEN WAS CHANGED BY HERBARIUM CURATOR. CALL VENEGAS IN REACH.
--- NOTE | 2017-04-09 09:35 | NUR ---
VISITOR AT BEDSIDE, OFFERS NO NEW COMPLAINTS, CONTINUE TO ENCOURAGE MIRALAX INTAKE, TOOK MILK OF MAGNESIA WITHOUT INCIDENT, THIS AM, CALL VENEGAS WITHIN REACH
--- NOTE | 2017-04-09 10:38 | NUR ---
PT RESTING, OFFERS NO NEW COMPLAITNS, VS STABLE, TEMP SLIGHTLY ELEVATED THIS AM, CURRENTLY 97.4, WILL CONTINUE TO MONITOR.
--- NOTE | 2017-04-09 11:28 | NUR ---
PT MEDICATED FOR COMPLAINTS OF PAIN, VISITOR CURRENTLY AT BEDSIDE, WILL CONTINUE TO MONITOR
--- NOTE | 2017-04-09 12:27 | NUR ---
SET UP ASSIST PROVIDED EARLIER FOR AFTERNOON MEAL, PT STILL HAS POOR APPETITE, BUT PICKS SOME AT MEAL, CALL VENEGAS WITHIN REACH
--- NOTE | 2017-04-09 14:17 | NUR ---
PT DOZING INTERMITTNELY, NO S/S OF PAIN OR DISCOMFORT NOTED, CALL VENEGAS WITHIN REACH, WILL CONTINUE TO MONITOR.
--- NOTE | 2017-04-09 16:32 | NUR ---
FAMILY MEMBERS AT BEDSIDE, OFFERS NO NEW COMPLAINTS CALL VENEGAS WITHIN REACH
--- NOTE | 2017-04-09 19:30 | NUR ---
PT SITTING UP IN BED WITH EYES CLOSED. PT IS ALERT AND ORIENTED X2. REORIENTED PT TO PLACE. PT IS VERY DROWSY. PERRLA. RESP ARE EVEN AND UNLABORED. WHEEZING NOTED IN RIGHT LUNG. PT ON O2 2L NC. EDGE DYER DRY COUGH NOTED. NOTIFIED DR GUNTER OF WHEEZING AND COUGH. NEB TREATMENTS ORDERED. HR REGULAR. PULSES PALPABLE THROUGHOUT. BILAT LOWER EXTREMITIES HAVE TRACE EDEMA NOTED. BS ACTIVE. #22 LEFT WRIST WITH NS @ KVO INFUSING. NO REDNESS OR EDEMA NOTED. WILL CONTINUE TO MONITOR
--- NOTE | 2017-04-09 21:55 | NUR ---
PT RESTING IN BED WITH EYES CLOSED RESP ARE EVEN AND UNLABORED. NO DISTRESS NOTED. PT VOICES NO COMPLAINTS AT THIS TIME. WILL CONTINUE TO MONITOR
[2017-04-10] VITALS (14 sets, daily range): BP systolic 106–158; BP diastolic 43–73
--- NOTE | 2017-04-10 00:39 | NUR ---
PT RESTING IN BED WITH EYES CLOSED. PT AROUSES TO VERBAL STIMULI. PT CONTINUES TO BE DROWSY, HOWEVER WHEN SHE WAKES UP SHE STATES HER BACK IS HURTING. REPOSITIONED PATIENT FOR COMFORT MEASURES. NO BREAKTHROUGH PAIN MEDICATION GIVEN AT THIS TIME DUE TO LEVEL OF DROWSINESS. RESP ARE EVEN AND UNLABORED. NO DISTRESS NOTED VITAL SIGNS REMAIN STABLE. WILL CONTINUE TO MONITOR
--- NOTE | 2017-04-10 02:15 | NUR ---
PT RESTING IN BED WITH EYES CLOSED. PT AROUSES SLOWLY TO VERBAL STIMULI. PT CONTINUES TO BE DROWSY. PT DOES NOT WANT TO MOVE OUT OF BED. RESP ARE EVEN AND UNLABORED. NO DISTRESS NOTED. PT VOICES NO COMPLAINTS AT THIS TIME. WILL CONTINNUE TO MONITOR
--- NOTE | 2017-04-10 04:23 | NUR ---
PT RESTING IN BED WITH EYES CLOSED. RESP ARE EVEN AND UNLABORED. NO DISTRESS NOTED. WILL CONTINUE TO MONITOR
--- NOTE | 2017-04-10 05:00 | NUR ---
LAB INTO DRAW AM LABS
--- NOTE | 2017-04-10 05:00 | NUR ---
PT RESTING IN BED WITH EYES CLOSED. RESP ARE EVEN AND UNLABORED. NO DISTRESS NOITED. WILL CONTINUE TO MONIOTR
--- NOTE | 2017-04-10 07:25 | NUR ---
PT ALERT ORIENTED TO LOCATION AND NAME, REMEMBERS THIS NURSE FROM LAST FEW DAYS, BUT MORE DROWSY THIS AM REQUIRES FREQUENT DIRECTION WITH TASKS, HAS BEEN INCONTINENT (NEW FOR PT), AM ASSESSMENT COMPLETE SEE INTERVENTIONS, SKIN WARM AND DRY WITH NO BREAKDOWN NOTED, ABD SOFT AND BOWEL SOUNDS ACTIVE PT STATES LAST BM WAS PRIOR TO ADMISSION, AND NO BM SINCE MILK OF MAG AND MIRALAX YESTERDAY, STILL REQUESTING SOMETHING MORE TO "HELP HER GO", IV SITE INTACT IN LEFT WRIST, WITH IVF INFUSING AT PRESCRIBED RATE, PT EDUCATED REGARDING CHANGE IN PAIN MEDICATION REGIMEN RELATED TO DROWSINESS AND CHANGE IN FUNCTIONALITY, VERBALIZES UNDERSTANDING BUT MAY REQUIRE REINFORCEMENT, TELE CONTINUES TO SHOW SR WITH PAC'S AND PVC'S RATE CONTROLLED IN THE 70-80'S, BP STABLE, CALL [facility] WITH IN REACH, SAFETY MEASURES REINFORCED, WILL CONTINUE TO MONITOR,
[2017-04-10 07:51] LABS: HEMATOCRIT 29.2 % (37.0-47.0); HEMOGLOBIN 8.9 g/dl (12.0-16.0); MEAN CELL VOLUME 98.6 fL CALC (80.0-100.0); MEAN CORPUSCULAR HGB 30.1 pG CALC (26.0-32.0); MEAN CORPUSCULAR HGB CONC 30.5 g/L CALC (32.0-36.0); RED BLOOD COUNT 2.96 mill/uL (4.20-5.60); RED CELL DISTRI WIDTH 13.8 % (11.5-15.5)
--- NOTE | 2017-04-10 08:00 | NUR ---
SET UP ASSIST PROVIDED FOR AM MEAL, PO INTAKE REPEATEDLY ENCOURAGED RELATED TO POOR INTAKE LAST FEW DAYS, (TAKES PO FLUIDS WELL) COMFORT MEASURES PROVIDED, PT IS HOLLERING OUT THAT SHE HAS TO GOT TO THE BATHROOM, REPSOND IMMEDIATELY AND PT HAS ALREADY BEEN INCONTINENT, DIANA CARE PROVIDED AND LINENS CHANGED, CALL VENEGAS WITHIN REACH.
[2017-04-10 08:07] LABS: ANION GAP 14 (6-22 (CALC)); BUN 27 mg/dL (8-23); BUN/CREATININE RATIO 28 (12-20 (CALC)); CALCIUM 9.1 mg/dL (8.4-10.2); CARBON DIOXIDE 24 mmol/l (22-30); CHLORIDE 110 mmol/l (95-108); GFR 53 ML/MIN (>=60 (CALC)); GFR FOR AFR.AMER. > 60 ML/MIN (>=60 (CALC)); GLUCOSE 94 mg/dL (82-115); MAGNESIUM 2.3 mg/dL (1.6-2.3); POTASSIUM 4.6 mmol/l (3.5-5.1); SODIUM 144 mmol/l (137-146)
--- NOTE | 2017-04-10 09:15 | NUR ---
PT OOB TO BSC WITH ONE MAX ASSIST, PT HAVING DIFFICULTY STANDING AND FOLLOWING COMMANDS, APPEARS TO BE MORE RELATED TO EMNTAL STATUS THAN STRENGTH/BALANCE. PT INCONTINENT AGAIN, DIANA CARE PROVIDED, GOWN AND LINENS CHANGED, BACK TO BED WITH SAME ASSIST, CALL VENEGAS WITHIN REACH
--- NOTE | 2017-04-10 09:30 | NUR ---
HECTOR FOWLER CALLED FOR UPDATE, AWARE OF MENTAL STATUS CHANGES AND PLAN OF CARE
--- NOTE | 2017-04-10 10:20 | NUR ---
PT RESTING, OFFERS NO NEW COMPLAINTS, VISITOR AT BEDSIDE, WILL CONTINUE TO MONITOR.
--- NOTE | 2017-04-10 11:18 | NUR ---
PT RESTING IN BED, VISITOR AT BEDSIDE EARLEIR FOR SHORT VISIT, GONE AT HTIS TIME, AND PT IS RESTING WITH EYES CLOSED, VS REMAIN STABLE SLIGHTLY FEBRILE WITH TEMP 100.3, COMFORT MEASURES PROVIDED, WILL CONTINUE TO MONITOR.
--- NOTE | 2017-04-10 12:45 | NUR ---
PT RESTING REMAINS DROWSY, FED SMALLAMOUNT OF AFTERNOON MEAL AND TOLERATED, IVF CONTINUE AT KVO TOLERATING ABT WITHOUT INCINDENT, WILL CONTINUE TO MONITOR.
--- NOTE | 2017-04-10 14:00 | NUR ---
PT RESTING IN BED, VISITOR AT BEDSIDE EARLIER GONE AT THIS TIME, REMAINS DROWSY, VS REMAIN STABLE, WILL CONTINUE TO MONITOR
--- NOTE | 2017-04-10 15:19 | NUR ---
PT RESTING IN BED AGAIN INCONTINENT OF SMALL AMOUNT IOF URINE, DIANA CARE PROVIDED, PT CONTINUES TO COMPLAIN OF DISCOMFORT IN R SHOULDER, PT DENIES INJURY OR TRAUMA TO AREA, AWARE, REMAINS DROWSY BUT APPROPRIATE WHEN AWAKENED, WILL CONTINUE TO MONITOR
--- NOTE | 2017-04-10 16:12 | NUR ---
PT INCONTINENT OF SMALL AMOUNT OF URINE, DIANA CARE PROVIDED, CALL VENEGAS WITHIN REACH, REMAINS DROWSY BUT REPSONDS, WILL CONTINUE TO MONITOR.
--- NOTE | 2017-04-10 17:13 | NUR ---
PT RESTING, MEDICATED FOR TEMP 100.6, WILL CONTINUE TO MONITOR.
--- NOTE | 2017-04-10 17:40 | NUR ---
TEMP 101.4, PREVIOUSLY MEDICATED WILL RE CHECK IN 1 HR
--- NOTE | 2017-04-10 19:32 | NUR ---
PT ASSISTED TO BSC. DIANA CARE GIVEN AND NEW URINE HAT PLACED IN BSC TO OBTAIN URINE SPECIMEN THAT IS ORDERED. PT IS ALERT AND ORIENTED X3. PERRLA. WHEEZING NOTED THROUGHOUT RIGHT LUNG. LEFT LUNG IS DIMINISHED. RESP ARE EVEN AND UNLABORED. HR REGULARL. PULSES PALPABLE THROUGHOUT. EDEMA TO BILAT LOWER AND UPPER EXTREMITIES. BS ACTIVE. PT STATES THAT SHE IS HAVING PAIN 10/10 IN HER BACK SHE ALSO HAS A TEMPM OF 100.1. MEDICATED PT WITH LORTAB ORDERED BY . #20 LEFT WRIST. IV NOTED TO BE LEAKING WILL CHANGE IV SITE. PT CONTINUES TO BE SLIGHTLY DROWSY. WILL CONTINUE TO MONITOR
--- NOTE | 2017-04-10 20:00 | NUR ---
#20 LEFT WRIST DC'D CATH TIP INTACT. #22 PLACE IN RIGHT WRIST X1 ATTEMPT. PT TOLERATED WELL.
[2017-04-10 20:02] LABS: URINE BILIRUBIN - DIPSTICK NEGATIVE (NEGATIVE); URINE BLOOD DIPSTICK MODERATE (NEGATIVE); URINE COLOR YELLOW; URINE GLUCOSE - DIPSTICK NEGATIVE (NEGATIVE); URINE KETONE NEGATIVE (NEGATIVE); URINE LEUK ESTERASE NEGATIVE (Negative); URINE NITRITE - DIPSTICK NEGATIVE (Negative); URINE PROTEIN - DIPSTICK 30 mg/dL (NEG-TRACE); URINE SPECIFIC GRAVITY 1.025; URINE UROBILINOGEN - DIPSTICK 0.2 E.U./dL (0.2)
[2017-04-10 20:12] LABS: URINE CLARITY CLEAR
[2017-04-10 20:13] LABS: URINE MUCUS FEW hpf (NONE-FEW); URINE SQUAMOUS EPITHELIAL CELL FEW EPI/hpf (0-FEW)
--- NOTE | 2017-04-10 22:00 | NUR ---
PT RESTING IN BED WITH EYES CLOSED. RESP ARE EVEN AND UNLABORED. NO DISTRESS NOTED. WILL CONTINUE TO MONITOR
--- NOTE | 2017-04-10 22:30 | NUR ---
CALLED REGARDING ORAL CONTRAST FOR PT CT. STATED THEY WOULD PROFILE IT.
--- NOTE | 2017-04-10 23:01 | NUR ---
SPOKE WITH [facility] AGA[facility]. GASTROGRAFIN ORDER CLARIFIED FOR FREQUENCY.
--- NOTE | 2017-04-10 23:15 | NUR ---
FIRST BOTTLE OF GASTROGRAFIN ADMINISTERED WITH 8OZ OF JUICE
--- NOTE | 2017-04-10 23:51 | NUR ---
2ND BOTTLE OF GASTROGRAFIN GIVEN WITH 8OZ OF JUICE
[2017-04-11] VITALS (11 sets, daily range): BP systolic 121–168; BP diastolic 51–80
--- NOTE | 2017-04-11 00:15 | NUR ---
3RD BOTTLE OF GASTROGRAFIN ADMINISTERED
--- NOTE | 2017-04-11 00:30 | NUR ---
PT TO CT VIA STRETCHER RURAL MAIL CONTRACTOR IN PLACE. PT ON O2.
--- NOTE | 2017-04-11 01:00 | NUR ---
PT RETURNED TO ICU VIA STRETCHER. PT HAD A MODERATE LIQUID BM.
--- NOTE | 2017-04-11 02:12 | NUR ---
PT RESTING IN BED WITH EYES CLOSED. RESP ARE EVEN AND UNLABORED. NO DISTRESS NOTED. PT VOICES NO COMPLAINTS AT THIS TIME. WILL CONTINUE TO MONITOR
--- NOTE | 2017-04-11 04:00 | NUR ---
PT RESTING IN BED WITH EYES CLOSED. RESP ARE EVEN AND UNLABORED. NO DISTRESS NOTED. WILL CONTINUE TO MONITOR
[2017-04-11 04:47] LABS: HEMATOCRIT 30.6 % (37.0-47.0); HEMOGLOBIN 9.3 g/dl (12.0-16.0); IMMATURE GRANULOCYTES 1.8 % (0.0-1.0); MEAN CELL VOLUME 99.7 fL CALC (80.0-100.0); MEAN CORPUSCULAR HGB 30.3 pG CALC (26.0-32.0); MEAN CORPUSCULAR HGB CONC 30.4 g/L CALC (32.0-36.0); NEUT# 4.82 thou/uL (2.00-7.15); RED BLOOD COUNT 3.07 mill/uL (4.20-5.60); RED CELL DISTRI WIDTH 13.9 % (11.5-15.5)
[2017-04-11 04:59] LABS: ALBUMIN 2.8 g/dL (3.2-5.0); ALKALINE PHOSPHATASE 158 u/l (38-126); ANION GAP 13 (6-22 (CALC)); BUN 22 mg/dL (8-23); BUN/CREATININE RATIO 26 (12-20 (CALC)); CARBON DIOXIDE 25 mmol/l (22-30); CHLORIDE 110 mmol/l (95-108); CREATININE 0.9 mg/dL (0.5-1.0); GFR 60 ML/MIN (>=60 (CALC)); GFR FOR AFR.AMER. > 60 ML/MIN (>=60 (CALC)); GLUCOSE 115 mg/dL (82-115); POTASSIUM 4.8 mmol/l (3.5-5.1); SGOT/AST 119 u/l (9-36); SGPT/ALT 49 u/l (11-66); SODIUM 143 mmol/l (137-146)
--- NOTE | 2017-04-11 06:00 | NUR ---
PT RESTING IN BED WITH EYES CLOSED. RESP ARE EVEN AND UNLABORED. NO DISTRESS NOTED. WILL CONTINUE TO MONITOR
--- NOTE | 2017-04-11 06:42 | NUR ---
NOTIFIED DR. SNOW OF CT FINDINGS LASIX 40MG IV ORDERED
--- NOTE | 2017-04-11 07:02 | NUR ---
PURCELL PLACED INTO PT. PURCELL DRAINS MOLINA YELLOW COLLORED URINE. LASIX 40MG IV PUSH GIVEN PER MD ORDERS
--- NOTE | 2017-04-11 07:20 | NUR ---
PT ALERT ORIENTED TO LOCATION AND NAME, REMEMBERS THIS NURSE FROM LAST FEW DAYS, BUT MORE AWAKE THIS AM BUT STILL REQUIRES FREQUENT DIRECTION WITH TASKS, HAD BEEN INCONTINENT (NEW FOR PT) PURCELL PLACED THIS AM BY PREVIOUS SHIFT WITH LASIX ADMINISTERED WELL BY PREVIOUS SHIFT, AM ASSESSMENT COMPLETE SEE INTERVENTIONS, SKIN WARM AND DRY WITH NO BREAKDOWN NOTED, ABD SOFT AND BOWEL SOUNDS ACTIVE, PT HAD LARGE LOOSE STOOL LAST PM PER REPORT, IV SITE INTACT IN R WRIST, WITH IVF INFUSING AT PRESCRIBED RATE, PT EDUCATED AGAIN REGARDING, PAIN MEDICATION SCHEDULE AND NEED FOR REHAB POST HOSPITAL STAY RELATED TO DECREASE IN FUNCTIONALITY (PT LIVES ALONE BUT HAS GOOD SUPPORT SYSTEM) , VERBALIZES UNDERSTANDING BUT MAY REQUIRE REINFORCEMENT, TELE CONTINUES TO SHOW SR WITH PAC'S AND PVC'S RATE CONTROLLED IN THE 70-80'S, BP STABLE, CALL VENEGAS WITH IN REACH, SAFETY MEASURES REINFORCED, WILL CONTINUE TO MONITOR,
--- NOTE | 2017-04-11 08:20 | NUR ---
PT OOB TO BSC WITH ONE MAX ASSIST PT WEAK, DIFFICULTY FOLLOWING INSTRUCTIONS, CONTINENT OF MODERATE AMOUNT LOOSE STOOL, DIANA CARE PROVIDED, PT HAS HISTORY OF HEMMRHOIDS AND STATES THAT SHE CONSTANTLY HAS BLOOD WHEN SHE WIPES, SMALL AMOUNT OF CLOTS AND BLOOD NOTED WITH DIANA CARE, BACK TO BED WITH WALKER AND PT TOLERATED WELL. REPOSITIONED FOR COMFORT, CALL VENEGAS WITHIN REACH
--- NOTE | 2017-04-11 09:11 | NUR ---
IN TO SEE PATIENT, CALL VENEGAS WITHIN REACH.
--- NOTE | 2017-04-11 09:25 | NUR ---
SPEAKING WITH SON MALCOLM VIA TELEPHONE
--- NOTE | 2017-04-11 10:34 | NUR ---
PT AWAKE WATHCING TELEVISION, STATES MODERATE PAIN RELIEF ACHIEVED WITH PAIN MEDICATION GIVEN EARLIER, OFFERS NO OTHER COMPLAINTS, CALL VENEGAS WITHIN REACH, EASILY VISIBLE FROM NURSES STATION FOR SAFETY.
--- NOTE | 2017-04-11 10:47 | NUR ---
Vancomycin consult Weight: 73.3 Kilograms Current dose being given: 1000 mg Current dosing interval: 24 hrs Current infusion time (hrs): 2 Single level Trough Data: Trough level obtained: 11 mcg/ml Timing of trough - Number of hours before next dose: 0.08 Hrs Estimated PK Parameters: New rate constant (yimi): 0.043 hr-1 New half-life: 16.12 Hours New Vd from levels: 51.31 Liters (0.7 L/kg) Give Vancomycin 1500 mg q 24 hrs. Infuse over 2 hrs Expected Cpeak: 43 mcg/ml Expected Ctrough: 17 mcg/ml
--- NOTE | 2017-04-11 11:49 | NUR ---
VISITOR AT BEDSIDE, SET UP ASSIST PROVIDED FOR AFTERNOON MEAL, VISITOR ASSISTING WITH FEEDING, COMFORT MEASURES PROVIDED, WILL CONTINUE TO MONITOR.
--- NOTE | 2017-04-11 12:25 | NUR ---
VISITOR REMAIN AT BEDSIDE, PT ATE MINIMAL AMOUNT OF AFTERNOON MEAL, EDUCATED REGARDING THE IMPORTANCE OF GOOD DIETARY INTAKE, WITH REGARDS TO HEALING AND STRENGTH, PT VERBALIZES UNDERSTANDING, VISITOR TO BRING HER A REQUESTED SALAD FOR EVENING MEAL. CALL VENEGAS WITHIN REACH
--- NOTE | 2017-04-11 13:36 | NUR ---
PT RESTING, DOZES INTERMITTENLY, CALL VENEGAS WITHIN REACH, WILL CONTINUE TO MONITOR.
--- NOTE | 2017-04-11 15:00 | NUR ---
PT DOZING, OFFERS NO NEW COMPLAINTS, IVF CONTINUE ORDERED, TOLERATES ABT W/O INCIDENT, CALL VENEGAS WITHIN REACH.
--- NOTE | 2017-04-11 16:14 | NUR ---
PT CONTINUES DOZING INTERMITTENLY, VISITOR AT BEDSIDE, CALL VENEGAS WITHIN REACH
--- NOTE | 2017-04-11 16:55 | NUR ---
GRANT RAJPUT SON AYAN LEON AND VISITOR AT BEDSIDE, PURCELL CATH REMAINS INTACT DRAINING CLEAR YELLOW URINE, CALL VENEGAS WITHIN REACH
--- NOTE | 2017-04-11 17:37 | NUR ---
SET UP ASSIST PROVIDED FOR PM MEAL, VISITOR AT BEDSIDE ASSISTING WITH MEAL, CALL VENEGAS WITHIN REACH, WILL CONTINUE TO MONITOR.
--- NOTE | 2017-04-11 18:25 | NUR ---
PT DOZING ATE SMALL AMOUNT OF EVENING MEAL WITH SIGNIFICANT ENCOURAGEMENT FROM VISITORS, CALL VENEGAS REMAINS WITHIN REACH.
--- NOTE | 2017-04-11 19:00 | NUR ---
PT RESTING IN BED WITH EYES CLOSED. PT AROUSES EASILY TO VERBAL STIMULI. PT IS ALERT AND ORIENTED X3 WITH PERIODS OF CONFUSION. PERRLA. RESP ARE EVEN AND UNLABORED. NO DISTRESS NOTED. LUNGS HAVE WHEEZING ON THE RIGHT LOWER LOBE AND DIMINISHED BUT CLEAR THROUGHOUT. HR REGULAR. PULSES PALPABLE THROUGHOUT. EDEMA NOTED TO BILAT UPPER AND LOWER EXTREMITIES. BS ACTIVE. PT REPORTS NO BM TODAY. PURCELL DRAINING MOLINA YELLOW COLORED URINE. #22 RIGHT WRIST WITH NS @KVO. NO REDNESS OR EDEMA NOTED. WILL CONTINUE TO MONITOR
--- NOTE | 2017-04-11 22:00 | NUR ---
PT RESTING IN BED WITH EYES CLOSED. RESP ARE EVEN AND UNLABORED. NO DISTRESS NOTED. WILL CONTINUE TO MONITOR
[2017-04-12] VITALS (9 sets, daily range): BP systolic 129–155; BP diastolic 57–68
--- NOTE | 2017-04-12 | NUR ---
PT RESTING IN BED WITH EYES CLOSED. RESP ARE EVEN AND UNLABORED. NO DISTRESS NOTED. WILL CONTINUE TO MONITOR
--- NOTE | 2017-04-12 01:14 | NUR ---
PT UP TO BSC FOR BM. NOTED LIQUID BROWN STOOL.
--- NOTE | 2017-04-12 02:03 | NUR ---
PT RESTING IN BED WITH EYES CLOSED. RESP ARE EVEN AND UNLABORED. NO DISTRESS NOTED. WILL CONTINUE TO MONITOR
--- NOTE | 2017-04-12 04:00 | NUR ---
PT RESTING IN BED WITH EYES CLOSED. RESP ARE EVEN AND UNLABORED. NO DISTRESS NOTED. WILL CONTINUE TO MONITOR
--- NOTE | 2017-04-12 04:11 | NUR ---
LAB INTO DRAW AM LABS
[2017-04-12 04:27] LABS: HEMATOCRIT 26.2 % (37.0-47.0); HEMOGLOBIN 8.2 g/dl (12.0-16.0); MEAN CELL VOLUME 96.3 fL CALC (80.0-100.0); MEAN CORPUSCULAR HGB 30.1 pG CALC (26.0-32.0); MEAN CORPUSCULAR HGB CONC 31.3 g/L CALC (32.0-36.0); RED BLOOD COUNT 2.72 mill/uL (4.20-5.60); RED CELL DISTRI WIDTH 13.8 % (11.5-15.5)
[2017-04-12 05:04] LABS: ANION GAP 12 (6-22 (CALC)); BUN 17 mg/dL (8-23); BUN/CREATININE RATIO 20 (12-20 (CALC)); CALCIUM 8.5 mg/dL (8.4-10.2); CARBON DIOXIDE 28 mmol/l (22-30); CHLORIDE 105 mmol/l (95-108); CREATININE 0.8 mg/dL (0.5-1.0); GFR > 60 ML/MIN (>=60 (CALC)); GFR FOR AFR.AMER. > 60 ML/MIN (>=60 (CALC)); GLUCOSE 115 mg/dL (82-115); POTASSIUM 3.9 mmol/l (3.5-5.1); SODIUM 142 mmol/l (137-146)
--- NOTE | 2017-04-12 06:02 | NUR ---
PT RESTING IN BED WITH EYES OPEN. PT WITH COMPLAINTS OF TONGUE BURNING. NOTED WHITE RESIDUE ON BACK OF TONGUE. WILL CONTINUE TO MONITOR
--- NOTE | 2017-04-12 07:10 | NUR ---
REPORT RECEIVED FROM ROULA IRIZARRY; PT C/O LOWER BACK PAIN 12/29, MEDICATED ORDERED; CALL VENEGAS WITHIN REACH; WILL CONTINUE TO MONITOR.
--- NOTE | 2017-04-12 09:18 | NUR ---
DR. SNOW IN TO SEE PT; PLAN OF CARE DISCUSSED
--- NOTE | 2017-04-12 10:39 | NUR ---
PT GIVEN COMPLETE BED BATH AND REPOSITIONED BY BULLDOZER/LOADER/COMPACTOR/SCRAPER STUDENT; NO COMPLAINTS OR CONCERNS VOICED AT THIS TIME; CALL VENEGAS WITHIN REACH; WILL CONTINUE TO MONITOR.
--- NOTE | 2017-04-12 11:47 | NUR ---
FAMILY ASSISTING PT WITH LUNCH; PT C/O LOWER BACK PAIN 10/29, WILL MEDICATE; SR PAC 75 ON SPORTS BOOK BOARD ATTENDANT; CALL VENEGAS WITHIN REACH; WILL CONTINUE TO MONITOR.
--- NOTE | 2017-04-12 13:31 | NUR ---
PT WITH VISITORS AT BEDSIDE
--- NOTE | 2017-04-12 14:29 | NUR ---
PT MEDICATED FOR C/O BACK PAIN 12/29; PHYSICAL THERAPY IN WITH PT; WILL CONTINUE TO MONITOR.
--- NOTE | 2017-04-12 15:50 | NUR ---
PT RESTING WITH EYES CLOSED; FAMILY IN TO VISIT; WILL CONTINUE TO MONITOR.
--- NOTE | 2017-04-12 17:26 | NUR ---
PT WAS SEEN RESTING IN THE BED WITH RN ON THE SIDE. ATTEMPTED TO PERFORM PT EVALUATION, HOWEVER, PT REFUSED TO COOPERATE. STATES THAT SHE WILL NOT DO ANYTHING TODAY SHE WAS NOT FEELING WELL BUT WILL TRY TOMORROW.
--- NOTE | 2017-04-12 17:31 | NUR ---
PT REPOSITIONED; ASSISTED WITH DINNER BY SOFTWARE ENGINEER DEVELOPER; CALL VENEGAS WITHIN REACH; WILL CONTINUE TO MONITOR.
--- NOTE | 2017-04-12 19:15 | NUR ---
PT IN SEMIFOWLERS WITH EYES CLOSED RESPIRATIONS EVEN AND UNLABORED ON O2 @2L VIA NC, RESPONDS EASILY TO VERBAL COMMAND A/O TO SELF AND , IS CONFUSED. ORIENTED TO DATE, TIME AND PLACE. DENIES PAIN. TYLENOL 650MG PO GIVEN IN APPLE SAUCE DUE TO TEMP 100.2. PURCELL DRAINING CLEAR YELLOW URINE, STRAP IN PLACE TO RIGHT LEG. NS INFUSIG TO RW AT KVO. CALL LIGHT IN REACH, WILL CONTINUE TO MONITOR.
--- NOTE | 2017-04-12 20:56 | NUR ---
REPOSITIONED TO SEMIFOWLERS, C/O BACK PAIN, MEDICATED WITH LORTAB AT THIS TIME, MIRALAX ALSO GIVEN AT THIS TIME. WILL CONTINUE TO MONITOR.
--- NOTE | 2017-04-12 23:54 | NUR ---
RESTING WITH EYES CLOSED, RESPIRATIONS EVEN AND UNLABORED.
[2017-04-13] VITALS (9 sets, daily range): BP systolic 110–163; BP diastolic 47–71
--- NOTE | 2017-04-13 02:00 | NUR ---
PT CALLING OUT FOR EDNA, ORIENTED PT TO TIME AND PLACE, IS CONFUSED BUT STATES "I KNOW, I KNOW". C/O BACK PAIN WITH FACIAL SCALE 6/10 PROVIDED WITH LORTAB AT THIS TIME. PT ALSO STATES SHE IS HUNGRY PROVIDED WITH TURKEY SANDWICH, ABLE TO FEED SELF.
--- NOTE | 2017-04-13 04:00 | NUR ---
RESTING WITH EYES CLOSED, RESPOSITIONED TO RIGHT SIDE.
--- NOTE | 2017-04-13 06:30 | NUR ---
LORTAB PROVIDED FOR C/O BACK PAIN FACIAL SCALE 8/10. PT CONFUSED, PLEASANT, RESPIRATIONS EVEN AND UNLABORED. AZACTAM INFUSING TO RW WITH NO COMPLICATIONS.
[2017-04-13 07:08] LABS: HEMATOCRIT 27.2 % (37.0-47.0); HEMOGLOBIN 8.5 g/dl (12.0-16.0)
--- NOTE | 2017-04-13 07:15 | NUR ---
PT LAYING IN BED WATCHING TV, A & O X3, PERRL, PT VERBALIZES NO COMPLAINTS AT THIS TIME, AFEBRILE, HR 72, RESP. 18, BP 147/71, O2 98% ON 2L VIA NC, LUNG SOUNDS CLEAR IN ALL HEAD, 1+ GENERALIZED EDEMA, 22G RW IV WITH NS INFUSING AT PRESCRIBED RATE, NO REDNESS OR DRAINAGE AT SITE, PURCELL CATH REMAINS IN PLACE SECURED WITH CATH STRAP, AM ASSESSMENT COMPLETE, SEE INTERVENTIONS, SAFETY MEASURES REINFORCED, CALL VENEGAS WITHIN REACH
--- NOTE | 2017-04-13 07:35 | NUR ---
SETUP ASSISTANCE PROVIDED WITH DANIS ELLSWORTH
--- NOTE | 2017-04-13 09:48 | NUR ---
DR SNOW AT BEDSIDE DISCUSSING PLAN OF CARE
--- NOTE | 2017-04-13 10:30 | NUR ---
PT TALKING TO DAUGHTER ON THE PORTABLE PHONE
--- NOTE | 2017-04-13 11:15 | NUR ---
PT TO RADIOLOGY FOR PICC LINE PLACEMENT, ACCOMPANIED BY NURSE
--- NOTE | 2017-04-13 12:00 | NUR ---
PT RETURNED TO THE UNIT FROM RADIOLOGY, PT TOLERATED PICC INSERTION WELL
--- NOTE | 2017-04-13 12:05 | NUR ---
SETUP ASSISTANCE PROVIDED WITH LUNCH
--- NOTE | 2017-04-13 13:15 | NUR ---
PURCELL CATH REMOVED, PT TOLERATED WELL, PT REMINDED TO CALL FOR ASSISTANCE, CALL VENEGAS WITHIN REACH
[2017-04-13] MEDS ORDERED: LORTAB 1010 MG PO (13:16)
[2017-04-13] MEDS ORDERED: ROCEPHIN 2 GM2 GM IV (13:16)
[2017-04-13] MEDS ORDERED: XANAX0.5 MG PO (13:16)
--- NOTE | 2017-04-13 13:30 | NUR ---
P.T. AT BEDSIDE FOR EVAL.
--- NOTE | 2017-04-13 14:36 | NUR ---
VISITOR AT BEDSIDE
--- NOTE | 2017-04-13 16:20 | NUR ---
CASE MANAGEMENT AT BEDSIDE DISCUSSING DISCHARGE
--- NOTE | 2017-04-13 16:50 | NUR ---
MARCO ANTONIO FROM [facility] CALLED ETA FOR TRANSPORT 2000
--- NOTE | 2017-04-13 17:40 | NUR ---
SETUP ASSISTANCE PROVIDED WITH PM MEAL
--- NOTE | 2017-04-13 19:36 | NUR ---
C/O BACK PAIN 8 AND HAS TEMP 100.6, PROVIDED WITH LORTAB AND TYLENOL AT THIS TIME. ABLE TO SWALLOW MED WHOLE IN APPLE SAUCE.
--- NOTE | 2017-04-13 19:50 | NUR ---
NURSE TO NURSE REPORT GIVEN TO BLANCHE FABIAN AT [facility] IN [place].
--- NOTE | 2017-04-13 20:26 | NUR ---
ATTEMPTED TO GET OUT OF BED TO BSC WITH ASSISTANCE PT IS VERY WEAK STATES "I DON'T THINK I CAN MAKE IT", BACK TO BED USING BED SMITH, VOIDING 300ML CLEAR YELLOW URINE, DIANA CARE PROVIDED. A/O TO SELF AND , IS AWARE OF TRANSFER TO [facility] IN [place]. RESPIRAITONS EVEN AND UNLABORED ON O2 @2L VIA NC. CALL LIGHT IN REACH.
--- NOTE | 2017-04-13 20:45 | NUR ---
DISCARGED TO [facility] VIA STRETCHER ACCOMPANIED BY [facility], ALL BELONGINGS SENT WITH PT.
== END 2017-04-13 20:45 | DRG 871 ==
LOC: ED 16:49 → ED-I 21:35 → ED 22:07 → ICU 22:08
PROVIDERS: Emergency Medicine; Nurse Practitioner Family; ADMIT Internal Medicine; ATTEND Internal Medicine
PROC: 05HY33Z Insertion of Infusion Device into Upper Vein, Percutaneous Approach (ICD-10-PCS; principal; 2017-04-13)
DX: A40.1 Sepsis due to streptococcus, group B (principal); G93.41 Metabolic encephalopathy; R65.20 Severe sepsis without septic shock; G92 Toxic encephalopathy; N17.9 Acute kidney failure, unspecified; D69.6 Thrombocytopenia, unspecified; E86.0 Dehydration; N39.0 Urinary tract infection, site not specified; M19.90 Unspecified osteoarthritis, unspecified site; F32.9 Major depressive disorder, single episode, unspecified; D63.8 Anemia in other chronic diseases classified elsewhere; M80.88XD Other osteoporosis with current pathological fracture, vertebra(e), subsequent encounter for fracture with routine healing; T39.395A Adverse effect of other nonsteroidal anti-inflammatory drugs [NSAID], initial encounter; G89.4 Chronic pain syndrome; T40.2X5A Adverse effect of other opioids, initial encounter; B96.20 Unspecified Escherichia coli [E. coli] as the cause of diseases classified elsewhere; Z85.3 Personal history of malignant neoplasm of breast; Z88.0 Allergy status to penicillin; Z92.3 Personal history of irradiation; Z92.21 Personal history of antineoplastic chemotherapy
CPT/HCPCS: J1956; J3370